=== PATIENT | male | born 1960 | race Caucasian/White ===

== ENCOUNTER → 2021-09-14 10:20 | Outpatient (BNVA) | payer OTHER, MEDICARE, SELFPAY | PROVIDERS: PCP Nurse Practitioner Family; Visit Provider Internal Medicine | DX: E11.65 Type 2 diabetes mellitus with hyperglycemia (principal); E11.59 Type 2 diabetes mellitus with other circulatory complications; I50.32 Chronic diastolic (congestive) heart failure; E78.5 Hyperlipidemia, unspecified; Z79.4 Long term (current) use of insulin; Z87.891 Personal history of nicotine dependence | CPT/HCPCS: 99213; 99214 ==

== ENCOUNTER 2021-09-14 12:24 | Outpatient (CLI) | payer OTHER, MEDICARE, SELFPAY ==
--- NOTE | 2021-09-14 12:38 | XR_ITS ---
WS: [id number] XR chest 2V* [id number] REASON FOR EXAM: assess resolution of pneumonia FINDINGS: No previous examination for comparison. The heart is not enlarged. Mild tortuosity the thoracic aorta. Calcified granulomatous disease in both hemithoraces. Flattening of the hemidiaphragms and expansion of the anterior clear space with areas of lucency thro ughout both lungs compatible with obstructive lung disease/bullous disease. Chronic appearing linear interstitial changes in the left lower lung field with blunting of the left costophrenic angle and tenting of the left hemidiaphragm. Reticular interstitial densities in the right lower lung, unknown chronicity. Old healed right seventh rib fracture. Moderate degenerative spondylosis in the mid and lower thoraci c spine. XR/XR chest 2V* [id number] IMPRESSION: Underlying chronic obstructive lung disease. Right lower lung reticular interstitial opacities which could represent a subac korin pneumonitis.
== END 2021-09-14 12:25 | disposition home or self-care (01) ==
LOC: RAD 12:37
PROVIDERS: PCP Nurse Practitioner Family; Visit Provider Internal Medicine Pulmonary Disease
DX: J18.9 Pneumonia, unspecified organism (principal); J44.9 Chronic obstructive pulmonary disease, unspecified
CPT/HCPCS: 71046

== ENCOUNTER 2021-10-19 19:01 | Emergency (ER) | payer OTHER, MEDICARE, SELFPAY ==
[2021-10-19 19:11] VITALS: BP 130/78; PULSE 72; RESP 20; TEMP 36.3; O2SAT 90; BMI 29.8
--- NOTE | 2021-10-20 01:05 | ED_ITS ---
HPI - General Adult General: Chief complaint: General Medical Stated complaint: Head/Neck/Pain/Hemotoma on Leg Time Seen by Provider: 10/19/21 22:14 Source: patient Mode of arrival: ambulatory Limitations: no limitations History of Present Illness: 61-year-old male states he been having left-sided neck pain over the last 4 weeks. He states it is painful to touch anytime he turns his head to the left he states it is worse when he wakes up in the morning seems to get a little better throughout the day. States pain is currently 4-10. He states he does have some neuropathy and noticed a area over his right mosley that he was concerned was an abscess or hematoma as it keeps growing in size he does not believe he hit it on anything he is on Xarelto currently denies any pain in his lower leg. Associated symptoms: Deny chest pain, dyspnea, headache(s), nausea, rash or vomiting Review of Systems Const: Denies: fever(s), chills, body aches or change in appetite Eyes: Denies: blurry vision or eye discomfort ENMT: Denies: throat pain or dental pain Card: Denies: chest pain Resp: Denies: dyspnea GI: Denies: abdominal pain, nausea, vomiting or diarrhea : Denies: dysuria Musc: Reports: neck pain; Denies: back pain Skin/Breast: Reports: erythema; Denies: rash Neuro: Denies: headache(s) Psych: Denies: depression Kevin/Lymph: Reports: easy bruising All/Imm: Denies: urticaria PFSH ED PFSH: Medical History CHF (congestive heart failure) COPD (chronic obstructive pulmonary disease) History of COVID-19 History of non-ST elevation myocardial infarction (NSTEMI) HTN (hypertension) with goal to be determined Surgical History History of radiofrequency ablation (RFA) procedure for cardiac arrhythmia Family History Brother Myocardial infarct Diabetes Father Stroke Dementia Mother , Lymphoma CA Cancer Social History Smoking and tobacco status: former smoker Quit status (tobacco): has quit using tobacco Year quit tobacco: 2000 Former quit date comment: 2ppd x 34 years Second hand smoke exposure: No Smoking risk assessment/counseling performed?: Yes Alcohol intake: current Alcohol intake frequency: holidays/special occasions only Alcohol type: beer Desire information about alcohol rehabilitation?: No Counseling given: No Desire information about substance/drug rehabilitation?: No Counseling given: No Adopted: No Caregiver/support person: No Lives independently: Yes Household members: other Housing: House Marital status: Number of children: 1 Highest education level completed: High School Graduate service: No Current occupational status: disabled History of recent travel: No Physical Exam Const: COMMON NORMALS: no acute distress, patient oriented x3 and healthy appearing HENMT: COMMON NORMALS: normocephalic and atraumatic HEAD & SCALP: normocephalic and atraumatic Eye: COMMON NORMALS: Equal, round and reactive pupils present and EOMs intact bilaterally PUPIL: Yes Equal, round and reactive pupils present Neck/C-Spine: COMMON NORMALS: supple OTHER: No midline tenderness tenderness over left trapezius muscle and left side of the neck Chest: COMMONS NORMALS: normal inspection of the chest and normal palpation of entire chest wall Resp: COMMON NORMALS: normal respiratory effort, No retractions, No use of accessory muscles and clear to auscultation bilaterally AUSCULTATION: clear to auscultation bilaterally Cardio: COMMON NORMALS: regular rate, regular rhythm and No murmurs present (Cardio) RATE: regular rate RHYTHM: regular rhythm GI: COMMON NORMALS: Normal to inspection, nondistended, normoactive bowel sounds present, Soft to palpation, non-tender and no masses PALPATION: Yes Soft to palpation Extremity: COMMON NORMALS: full ROM NARRATIVE EXTREMITY EXAM: Hematoma or abscess noted over right lower leg Neuro: COMMON NORMALS: patient oriented x3, moves all extremities and no focal motor deficits Psych: COMMON NORMALS: mental status grossly normal, Normal thought process present and cooperative THOUGHT PROCESS: Normal thought process present Skin: COMMON NORMALS: no rashes or lesions noted and no wounds GENERAL SKIN EXAM: no rashes or lesions noted Procedures Abscess I/D Site: lower extremity Side (if applicable): right Local Anesthetic: lidocaine 1% Amount of anesthesia used (mL): 12 Technique: incised with #11 blade Complications: other (No purulent fluid drainage was not an abscess more likely hematoma did have hematoma context that was evacuated) Course Vital Signs: Vital signs: Vital Signs Temperature 97.4 F L 10/19/21 19:11 Pulse Rate 72 10/19/21 19:11 Respiratory Rate 20 H 10/19/21 19:11 Blood Pressure 130/78 10/19/21 19:11 Pulse Oximetry 90 10/19/21 19:11 [facility] - General Adult Medical Decision Making Patient presents here with neck pain left side of the neck likely muscle spasm type pain we will place him on Valium getting follow-up with Dr. Bautista. Patient has a hematoma to his right lower leg was unsure if is an abscess or hematoma did make a small incision over it is a hematoma did evacuate some hematoma and placed a pressure dressing. Discharge Plan Discharge Patient Disposition: Home Clinical Impression: Neck pain, Hematoma Condition: Stable Prescriptions: New Valium 5 mg tablet 5 mg PO BID PRN (Reason: muscle spasm) Qty: 14 0RF Naprosyn 500 mg tablet 500 mg PO BID PRN (Reason: pain) Qty: 20 0RF cephalexin 500 mg capsule 500 mg PO TID 7 Days Qty: 21 0RF No Action acetaminophen 500 mg tablet 500 mg PO Q6H PRN0RF albuterol sulfate 90 mcg/actuation HFA aerosol inhaler 2 puff inhalation Q6H PRN0RF allopurinol 100 mg tablet 200 mg PO DAILY 0RF aspirin [Adult Low Dose Aspirin] 81 mg tablet,delayed release (DR/EC) 81 mg PO DAILY 0RF bumetanide 1 mg tablet 5 mg PO BID 0RF metoprolol tartrate 25 mg tablet 12.5 mg PO BID 0RF potassium chloride 20 mEq tablet extended release 40 meq PO QID 0RF colchicine 0.6 mg tablet 0.6 mg PO DAILY PRN0RF gabapentin 300 mg capsule 300 mg PO BID 0RF magnesium oxide 500 mg capsule 500 mg PO BID 0RF metolazone 5 mg tablet 5 mg PO .Twice weekly 0RF omega-3 fatty acids 1,000 mg capsule 1,000 mg PO BID 0RF polyethylene glycol 3350 17 gram/dose powder 17 g PO DAILY PRN0RF rosuvastatin 20 mg tablet 20 mg PO DAILY 0RF Trelegy Ellipta 100-62.5-25 mcg blister with device 1 inh inhalation DAILY 0RF Jardiance 25 mg tablet 25 mg PO DAILY 0RF diltiazem HCl 120 mg capsule,extended release 24 hr 120 mg PO DAILY Qty: 90 3RF Lantus U-100 Insulin 100 unit/mL solution 32 unit SUBCUT DAILY 0RF insulin lispro [Humalog U-100 Insulin] 100 unit/mL solution 8 unit SUBCUT TID 0RF doxycycline hyclate 100 mg tablet 100 mg PO BID Qty: 14 0RF Xarelto 20 mg tablet 20 mg PO DAILY Qty: 90 3RF Rx Instructions: must administer with evening meal Discharge Orders: Discharge ED (Routine); Ordered 10/20/21 Ordered By: Benja Brice Referrals: Renetta Glass FNP [Primary Care Provider] - 1-3 days Haroldo Bautista DO [Physician] - 1-3 days Discharge Diet: Advance as tolerated Discharge Activity: Resume usual activity Patient Instructions: Hematoma (ED), Neck Pain (ED), Opioid Safety Coding Level of Care Code ED Educational Psychology Teacher for Chg Fwd Exam Comprehensive
[2021-10-20] MEDS: diazePAM 5 mg Tablet PO (01:10)
[2021-10-20] MEDS: naproxen 500 mg Tablet PO (01:10)
== END 2021-10-20 01:20 | disposition home or self-care (01) ==
PROVIDERS: Emergency Provider Emergency Medicine; PCP Nurse Practitioner Family
DX: M54.2 Cervicalgia (principal); S80.11XA Contusion of right lower leg, initial encounter; Z79.82 Long term (current) use of aspirin; Z79.4 Long term (current) use of insulin; I11.0 Hypertensive heart disease with heart failure; I50.9 Heart failure, unspecified; J44.9 Chronic obstructive pulmonary disease, unspecified; I25.2 Old myocardial infarction; Z87.891 Personal history of nicotine dependence; X58.XXXA Exposure to other specified factors, initial encounter
CPT/HCPCS: 10140; 99283